=== PATIENT | male | born 1960 | race Caucasian/White ===

== ENCOUNTER 2017-04-22 11:17 | Emergency (ER) | payer OTHER ==
[~2017-04-22] VITALS: Ht 177.8 cm; Wt 112.0 kg
[2017-04-22 12:10] LABS: MCH 29.2 PG (29.0-34.0); MCHC 33.3 G/DL (30.0-36.0); MCV 87.8 FL (86-99); MEAN PLAT.VOLUME 10.3 uM^3 (9.0-12.4); PLATELET COUNT 200 K/uL (156-360); RBC DIS.WIDTH-CV 12.1 % (11.8-14.6); RBC DIS.WIDTH-SD 39.3 % (39-53); RED BLOOD COUNT 5.58 M/uL (4.00-5.50); WHITE BLOOD COUNT 11.5 K/uL (4.1-10.2)
[2017-04-22 12:24] LABS: BILIRUBIN NEGATIVE; BLOOD NEGATIVE; COLOR AMBER ((YELLOW)); GLUCOSE (STRIP) NEGATIVE; KETONES NEGATIVE; LEUKOCYTES NEGATIVE; NITRITE NEGATIVE; PROTEIN (STRIP) 30; UROBILINOGEN 0.2 MG/DL (0.2-1.0)
[2017-04-22 12:24] LABS: CHLORIDE 104 mEq/L (99-109); POTASSIUM 4.1 mEq/L (3.7-5.4); SODIUM 138 mEq/L (136-147)
[2017-04-22 12:27] LABS: GLUCOSE 112 mg/dL (70-99)
[2017-04-22 12:28] LABS: ANION GAP 10 MEQ/L (2-14)
[2017-04-22 12:29] LABS: TOTAL BILIRUBIN 0.6 mg/dL (0.0-1.0)
[2017-04-22 12:30] LABS: ALKALINE PHOSPHATASE 88 IU/L (3-129); GFR ESTIMATE (CALCULATED) > 59 mL/min/
[2017-04-22 12:31] LABS: ADD MIUA? NO
[2017-04-22 12:31] LABS: UREA NITROGEN (BUN) 11 mg/dL (9-23)
[2017-04-22 12:34] LABS: LIPASE 22 U/L (1.0-51.0)
[2017-04-22] MEDS ORDERED: BENTYL20 MG PO (13:49)
[2017-04-22] MEDS ORDERED: CIPRO500 MG PO (13:49)
[2017-04-22] MEDS ORDERED: FLAGYL500 MG PO (13:49)
[2017-04-22] MEDS ORDERED: ZOFRAN ODT4 MG PO (14:21)
[2017-04-22 14:34] VITALS: BP 125/68
== END 2017-04-22 14:36 | disposition home or self-care (01) ==
LOC: EME 11:17
PROVIDERS: Nurse Practitioner Family
DX: K57.32 Diverticulitis of large intestine without perforation or abscess without bleeding (principal); D72.829 Elevated white blood cell count, unspecified; E11.9 Type 2 diabetes mellitus without complications; Z79.84 Long term (current) use of oral hypoglycemic drugs; F17.200 Nicotine dependence, unspecified, uncomplicated
CPT/HCPCS: 74177; 80053; 81003; 83605; 83690; 85027; 93005; 99281; 99285; J1885; J7040